=== PATIENT | male | born 1980 | race African-American/Black ===

== ENCOUNTER 2021-09-24 03:48 | Emergency (ER) | payer OTHER ==
[~2021-09-24] VITALS: Ht 157.5 cm; Wt 59.0 kg
--- NOTE | 2021-09-24 04:00 | NUR ---
TO ER BED 19. [facility] FOR OK TO BOOK, IN NEED OF COVID TEST. PT AAOX4. AMBULATORY WITH STEADY GAIT. BREATHING IS EVEN AND NON LABORED. CONNECTED TO MONITOR. AWAITING MD ORDERS
--- NOTE | 2021-09-24 04:02 | NUR ---
COVID SWAB DONE AND SENT TO LAB
[2021-09-24 05:53] VITALS: BP 134/69
== END 2021-09-24 05:54 ==
LOC: ER 03:53
DX: R05.9 Cough, unspecified (principal); Z20.822 Contact with and (suspected) exposure to COVID-19
CPT/HCPCS: 87426; 99283; C9803